=== PATIENT | male | born 1980 | race Caucasian/White ===

== ENCOUNTER → 2022-09-01 | Outpatient (CLI) | payer OTHER | LOC: M PLAIMG 06:35 | PROVIDERS: ATTEND Physician Assistant | DX: M54.2 Cervicalgia (principal); M25.561 Pain in right knee ==

== ENCOUNTER → 2022-09-16 | Outpatient (CLI) | payer OTHER | LOC: M PLAIMG 07:13 | PROVIDERS: ATTEND Physician Assistant | DX: M25.511 Pain in right shoulder (principal); M54.50 Low back pain, unspecified ==

== ENCOUNTER 2023-03-08 10:13 | Inpatient (IN) | payer OTHER ==
[~2023-03-08] VITALS: Ht 182.9 cm; Wt 99.5 kg
[2023-03-08] MEDS ORDERED: LORazepam 2 MG TAB PO PRN (10:25)
[2023-03-08] MEDS ORDERED: KEPP1TAB2 PO (10:38)
[2023-03-08] MEDS ORDERED: MED REC IN PROGRESS XX SCH (10:45)
[2023-03-08] MEDS ORDERED: MED REC CURRENTLY UNOBTAINABLE XX SCH (11:10)
[2023-03-08 12:32] LABS: AMPHETAMINES LEVEL URINE NEGATIVE (NEGATIVE); BARBITURATES URINE NEGATIVE (NEGATIVE); BENZODIAZEPINES URINE NEGATIVE (NEGATIVE); COCAINE METABOLITE URINE NEGATIVE (NEGATIVE)
[2023-03-08 12:33] LABS: METHADONE URINE NEGATIVE (NEGATIVE); OPIATES URINE NEGATIVE (NEGATIVE)
[2023-03-08 12:36] LABS: CANNABINOIDS URINE POSITIVE (NEGATIVE)
[2023-03-08 12:46] LABS: HEMATOCRIT 41.3 % (42.0-52.0); HEMOGLOBIN 14.4 g/dl (13.5-17.5); MEAN CORPUSCULAR HEMOGLOBIN 30.5 pg (27.0-33.0); MEAN CORPUSCULAR HGB CONC 34.9 g/dl (32.0-36.5); MEAN CORPUSCULAR VOLUME 87.5 fl (80.0-96.0); PLATELET COUNT, AUTOMATED 188 10^3/uL (150-450); RED BLOOD COUNT 4.72 10^6/uL (4.30-6.10); WHITE BLOOD COUNT 5.9 10^3/uL (4.0-10.0)
[2023-03-08 12:58] LABS: PHENCYCLIDINE URINE NEGATIVE (NEGATIVE)
[2023-03-08 13:11] LABS: ETHYL ALCOHOL (ETHANOL) 0.006 % (0.000-0.010)
[2023-03-08 13:12] LABS: SALICYLATE LEVEL < 3.0 MG/DL (<30)
[2023-03-08 13:13] LABS: ACETAMINOPHEN LEVEL < 2.0 UG/ML (10.0-20.0); ALBUMIN 4.8 G/DL (3.2-5.2); ALKALINE PHOSPHATASE 99 U/L (46-116); ALT/SGPT 32 U/L (7.0-40); AST/SGOT 35 U/L (<34); BILIRUBIN,DIRECT 0.4 MG/DL (<0.4); BILIRUBIN,TOTAL 1.1 MG/DL (0.3-1.2); BLOOD UREA NITROGEN 15 MG/DL (9-23); CALCIUM LEVEL 9.2 MG/DL (8.5-10.1); CARBON DIOXIDE LEVEL 31 MMOL/L (20-31); CHLORIDE LEVEL 104 MMOL/L (98-107); CREATININE FOR GFR 0.92 MG/DL (0.70-1.30); GLOMERULAR FILTRATION RATE > 60.0 (>60); GLUCOSE, FASTING 89 MG/DL (60-100); POTASSIUM SERUM 4.7 MMOL/L (3.5-5.1); SODIUM LEVEL 139 MMOL/L (136-145); TOTAL PROTEIN 7.5 G/DL (5.7-8.2)
[2023-03-08 13:16] LABS: THYROID STIMULATING HORMONE 1.395 uIU/ML (0.55-4.78)
[2023-03-08] MEDS: MULTIVITAMINS/MINERALS THERAP 1 TAB PO SCH (13:26)
[2023-03-08] MEDS: THIAMINE 100 MG TAB PO SCH ×2 (13:26→22:40)
[2023-03-08] MEDS: FOLIC ACID 1MG TAB PO SCH (13:26)
[2023-03-08] MEDS: levETIRAcetam 250MG TABLET (KEPPRA) PO SCH ×2 (14:15→22:41)
[2023-03-08] MEDS ORDERED: LEVE250T5 PO (14:24)
[2023-03-08] MEDS ORDERED: LISI20TA37 PO (14:24)
[2023-03-08] MEDS ORDERED: AMLO1TAB24 PO (14:24)
[2023-03-08] MEDS ORDERED: VIAG100T PO (14:24)
[2023-03-08] MEDS ORDERED: HOME MED LIST COMPLETE! XX SCH (14:25)
[2023-03-09] MEDS: levETIRAcetam 250MG TABLET (KEPPRA) PO SCH ×2 (08:24→21:16)
[2023-03-09] MEDS: MULTIVITAMINS/MINERALS THERAP 1 TAB PO SCH ×2 (08:24→17:34)
[2023-03-09] MEDS: THIAMINE 100 MG TAB PO SCH ×2 (08:24→21:16)
[2023-03-09] MEDS: FOLIC ACID 1MG TAB PO SCH ×2 (08:26→17:33)
[2023-03-09] MEDS ORDERED: MULTIVITAMINS/MINERALS THERAP 1 TAB PO SCH (09:00)
[2023-03-09] MEDS ORDERED: amLODIPine 5 MG TAB PO SCH (09:00)
[2023-03-09] MEDS ORDERED: FOLIC ACID 1MG TAB PO SCH (09:00)
[2023-03-09] MEDS ORDERED: IBUPROFEN 400MG TAB PO PRN (13:50)
[2023-03-09] MEDS ORDERED: MAALOX 30 ML SUSP *UDC PO PRN (13:50)
[2023-03-09] MEDS ORDERED: diphenhydrAMINE 25MG CAP PO PRN (13:50)
[2023-03-09] MEDS ORDERED: MOM 30ML SUSPENSION UDC PO PRN (13:50)
[2023-03-09] MEDS ORDERED: ACETAMINOPHEN TAB 650MG DOSE (2X325MG) PO PRN (13:50)
[2023-03-09] MEDS ORDERED: LORazepam 2 MG TAB PO PRN (15:00)
[2023-03-09 15:53] VITALS: BP 137/80; TEMP 98.5
[2023-03-09] MEDS: NICOTINE 21MG/24HR 1 EA TRANSDERMAL TD SCH (17:34)
[2023-03-09 23:32] VITALS: BP 133/74
[2023-03-10 05:59] VITALS: BP 141/77
[2023-03-10 06:14] VITALS: BP 141/77; TEMP 97.9; O2SAT 99
[2023-03-10] MEDS: FOLIC ACID 1MG TAB PO SCH (07:51)
[2023-03-10] MEDS: MULTIVITAMINS/MINERALS THERAP 1 TAB PO SCH (07:51)
[2023-03-10] MEDS: levETIRAcetam 250MG TABLET (KEPPRA) PO SCH ×2 (07:52→20:59)
[2023-03-10] MEDS: amLODIPine 5 MG TAB PO SCH (07:52)
[2023-03-10] MEDS: THIAMINE 100 MG TAB PO SCH ×2 (07:52→20:59)
[2023-03-10] MEDS: NICOTINE 21MG/24HR 1 EA TRANSDERMAL TD SCH (07:55)
[2023-03-10] MEDS: SERTRALINE HCL 25 MG TABLET PO SCH (13:54)
[2023-03-10] MEDS: NALTREXONE 50 MG TAB PO SCH (13:54)
[2023-03-10 14:00] VITALS: BP 139/87
[2023-03-10 18:15] VITALS: BP 139/87; TEMP 98.4; O2SAT 100
[2023-03-10 22:00] VITALS: BP 139/87
[2023-03-11 06:49] VITALS: BP 137/82; TEMP 97.8; O2SAT 97
[2023-03-11 06:52] VITALS: BP 137/82
[2023-03-11 08:58] VITALS: BP 143/83
[2023-03-11] MEDS: NALTREXONE 50 MG TAB PO SCH (09:00)
[2023-03-11] MEDS: SERTRALINE HCL 25 MG TABLET PO SCH (09:00)
[2023-03-11] MEDS: levETIRAcetam 250MG TABLET (KEPPRA) PO SCH ×2 (09:00→20:44)
[2023-03-11] MEDS: MULTIVITAMINS/MINERALS THERAP 1 TAB PO SCH (09:00)
[2023-03-11] MEDS: PILL CUTTER 1 EACH XX PRN (09:00)
[2023-03-11] MEDS: amLODIPine 5 MG TAB PO SCH (09:00)
[2023-03-11] MEDS: FOLIC ACID 1MG TAB PO SCH (09:01)
[2023-03-11 14:00] VITALS: BP 148/84
[2023-03-11 18:31] VITALS: BP 148/82; TEMP 97.5
[2023-03-11] MEDS: traZODone 50 MG TAB PO PRN (20:44)
[2023-03-11] MEDS: PRAZOSIN 1 MG CAP PO SCH (20:46)
[2023-03-11 22:00] VITALS: BP 120/74
[2023-03-12 06:00] VITALS: BP 136/73; TEMP 97.3; O2SAT 97
[2023-03-12] MEDS: FOLIC ACID 1MG TAB PO SCH (08:57)
[2023-03-12] MEDS: MULTIVITAMINS/MINERALS THERAP 1 TAB PO SCH (08:57)
[2023-03-12] MEDS: NALTREXONE 50 MG TAB PO SCH (08:58)
[2023-03-12] MEDS: PILL CUTTER 1 EACH XX PRN (08:58)
[2023-03-12] MEDS: amLODIPine 5 MG TAB PO SCH (08:58)
[2023-03-12] MEDS: levETIRAcetam 250MG TABLET (KEPPRA) PO SCH ×2 (08:59→20:12)
[2023-03-12] MEDS: SERTRALINE HCL 50 MG TAB PO SCH (08:59)
[2023-03-12 14:00] VITALS: BP 130/78
[2023-03-12 18:00] VITALS: BP 137/76; TEMP 97.1
[2023-03-12] MEDS: PRAZOSIN 1 MG CAP PO SCH (20:12)
[2023-03-12] MEDS: traZODone 50 MG TAB PO PRN (20:12)
[2023-03-13 06:35] VITALS: BP 136/80; TEMP 97.1; O2SAT 97
[2023-03-13 09:28] VITALS: BP 142/90
[2023-03-13] MEDS: SERTRALINE HCL 50 MG TAB PO SCH (09:30)
[2023-03-13] MEDS: MULTIVITAMINS/MINERALS THERAP 1 TAB PO SCH (09:30)
[2023-03-13] MEDS: NALTREXONE 50 MG TAB PO SCH (09:31)
[2023-03-13] MEDS: amLODIPine 5 MG TAB PO SCH (09:31)
[2023-03-13] MEDS: FOLIC ACID 1MG TAB PO SCH (09:31)
[2023-03-13] MEDS: levETIRAcetam 250MG TABLET (KEPPRA) PO SCH ×2 (09:32→21:22)
[2023-03-13 18:00] VITALS: BP 145/86; TEMP 97.6; O2SAT 99
[2023-03-13 21:22] VITALS: BP 138/93
[2023-03-13] MEDS: PRAZOSIN 1 MG CAP PO SCH (21:23)
[2023-03-14 06:27] VITALS: BP_SYST 132; BP_SYST 141; BP_DIAS 68; BP_DIAS 83; TEMP 97.8; O2SAT 96
[2023-03-14] MEDS: amLODIPine 5 MG TAB PO SCH (09:07)
[2023-03-14] MEDS: NALTREXONE 50 MG TAB PO SCH (09:07)
[2023-03-14] MEDS: MULTIVITAMINS/MINERALS THERAP 1 TAB PO SCH (09:07)
[2023-03-14] MEDS: levETIRAcetam 250MG TABLET (KEPPRA) PO SCH ×2 (09:07→20:09)
[2023-03-14] MEDS: FOLIC ACID 1MG TAB PO SCH (09:08)
[2023-03-14] MEDS: SERTRALINE HCL 50 MG TAB PO SCH (09:08)
[2023-03-14 17:55] VITALS: BP 125/72; TEMP 97.9; O2SAT 97
[2023-03-14] MEDS: PRAZOSIN 1 MG CAP PO SCH (20:09)
[2023-03-15 06:52] VITALS: BP 150/76; TEMP 97.7; O2SAT 97
[2023-03-15] MEDS: levETIRAcetam 250MG TABLET (KEPPRA) PO SCH (08:50)
[2023-03-15] MEDS: MULTIVITAMINS/MINERALS THERAP 1 TAB PO SCH (08:50)
[2023-03-15] MEDS: PILL CUTTER 1 EACH XX PRN (08:50)
[2023-03-15] MEDS: NALTREXONE 50 MG TAB PO SCH (08:50)
[2023-03-15] MEDS: SERTRALINE HCL 50 MG TAB PO SCH (08:50)
[2023-03-15 08:51] VITALS: BP 134/90
[2023-03-15] MEDS: FOLIC ACID 1MG TAB PO SCH (08:51)
[2023-03-15] MEDS: amLODIPine 5 MG TAB PO SCH (08:51)
[2023-03-15] MEDS ORDERED: MINI1CAP PO (09:09)
[2023-03-15] MEDS ORDERED: NALT50TA4 PO (09:09)
[2023-03-15] MEDS ORDERED: TRAZ-252 PO (09:09)
[2023-03-15] MEDS ORDERED: SERT50TA29 PO (09:09)
== END 2023-03-15 12:53 | disposition home or self-care (01) | DRG 882 ==
LOC: M ED 10:13 → M ED INP 03-09 13:46 → M PSY 03-09 15:54
PROVIDERS: ADMIT Psychiatry & Neurology Psychiatry; ATTEND Student in an Organized Health Care Education/Training Program
DX: F43.10 Post-traumatic stress disorder, unspecified (principal); F10.10 Alcohol abuse, uncomplicated; F32.89 Other specified depressive episodes; I10 Essential (primary) hypertension; G40.909 Epilepsy, unspecified, not intractable, without status epilepticus; M54.2 Cervicalgia; G89.29 Other chronic pain; G47.00 Insomnia, unspecified; Z91.82 Personal history of military deployment; Z79.899 Other long term (current) drug therapy